=== PATIENT | female | born 1965 | race Caucasian/White ===

== ENCOUNTER → 2021-12-20 13:37 | Outpatient (BNVA) | payer OTHER, SELFPAY | PROVIDERS: Family Provider Family Medicine; PCP Family Medicine; Visit Provider Nurse Practitioner Family | DX: R60.0 Localized edema (principal); R51.9 Headache, unspecified; B00.1 Herpesviral vesicular dermatitis | CPT/HCPCS: 80053; 85025 ==

== ENCOUNTER → 2022-05-15 16:33 | Outpatient (BNVA) | payer OTHER, SELFPAY | PROVIDERS: Family Provider Family Medicine; PCP Family Medicine; Visit Provider Nurse Practitioner Family | DX: R30.9 Painful micturition, unspecified (principal) | CPT/HCPCS: 81003; 87086 ==

== ENCOUNTER → 2022-05-29 09:01 | Outpatient (BNVA) | payer OTHER, SELFPAY | PROVIDERS: Family Provider Family Medicine; PCP Family Medicine; Visit Provider Family Medicine | DX: I10 Essential (primary) hypertension (principal) | CPT/HCPCS: 80053; 80061; 85025 ==

== ENCOUNTER 2022-08-16 10:21 | Emergency (ER) | payer OTHER, SELFPAY ==
--- NOTE | 2022-08-16 10:31 | ECG_ITS ---
[facility] Test Date: 2022-08-16 Pat Name: Ac Hall Department: Room: Gender: Female Neon Sign Maker: : 1965 Requested By: Wiley Lawson Order Number: [id number] Nick MD: Barrett Alfred M.D. Measurements Intervals [place] Rate: 106 P: 53 MO: 134 QRS: 79 QRSD: 88 T: 48 QT: 362 QTc: 482 Interpretive Statements SINUS TACHYCARDIA POSSIBLE LEFT ATRIAL ENLARGEMENT [-0.1mV P-WAVE IN V1/V2] MINIMAL ST DEPRESSION [0.025+ mV ST DEPRESSION] No previous ECG available for comparison Electronically Signed On 08-16-2022 18:42:38 CDT by Barrett Alfred M.D. [id number] f
[2022-08-16 10:33] VITALS: BP 128/87; PULSE 97; RESP 18; TEMP 36.4; O2SAT 98
--- NOTE | 2022-08-16 10:47 | XR_ITS ---
WS: [id number] Exam: XR chest 1V portable [id number] Date/Time of Exam: 08/16/2022 10:47 AM Reason For Exam: chest pain No priors. The lungs are clear and fully inflated. Normal cardiomediastinal silhouette. Bony structures are inta ct. Monitoring leads superimpose the chest. XR/XR chest 1V portable [id number] IMPRESSION: 1. No acute cardiopulmonary finding.
[2022-08-16 11:10] VITALS: BP 126/92; PULSE 90; RESP 13; O2SAT 92
--- NOTE | 2022-08-16 11:22 | W.ED.CHESTPA ---
HPI - Chest Pain General: Chief Complaint: Chest Pain Stated Complaint: pressure in chest/weak legs and arms Time Seen by Provider: 08/16/22 10:47 Source: patient Mode of arrival: ambulatory History of Present Illness: 57-year-old female who presents to the emergency room with complaints of chest discomfort for the last 5 days. She had nausea and vomiting feels very short of breath. She has pressure on the left side of her chest interestingly with palpation radiates into the left side of her neck. She has not noticed anything exacerbates or relieves it. She is a smoker she has no known history of coronary artery disease does have a history of hypertension. MD complaint: chest discomfort Onset (ago): day(s) (5) Timing of current episode: episodic Prior episodes: No Onset: during rest and during exertion Pain location: left chest Pain radiation: neck Severity: mild Quality: aching and heaviness Relieving factors: nothing Exacerbating factors: nothing Associated symptoms: Deny abdominal pain, diaphoresis, dyspnea, fever(s), leg edema, nausea, palpitations, sense of impending doom, syncope or vomiting Treatment prior to arrival: none Review of Systems Const: Denies: fever(s), chills, fatigue, malaise or diaphoresis ENMT: Denies: throat pain, ear or mastoid pain, nasal discharge or nasal congestion Card: Denies: palpitations or syncope Resp: Denies: dyspnea GI: Denies: abdominal pain, nausea or vomiting : Denies: flank pain, difficulty voiding, dysuria, urinary frequency or urinary urgency Skin/Breast: Denies: rash or pruritus [facility] ED PFSH: Medical History (Updated 08/16/22 @ 14:43 by Wiley Jessica DO) COPD (chronic obstructive pulmonary disease) Essential hypertension Hyperlipemia Surgical History (Updated 08/16/22 @ 11:26 by Wiley Jessica DO) History of lung surgery Hx of hysterectomy Social History Smoking and tobacco status: current every day smoker cigarettes Packs smoked per day: 0.5 Alcohol intake: current Alcohol intake frequency: 0-2 Drinks per Day Physical Exam Const: COMMON NORMALS: no acute distress GENERAL APPEARANCE: cooperative and comfortable ORIENTATION/CONSCIOUSNESS: Yes awake, Yes oriented to person, Yes oriented to place and Yes oriented to time HENMT: COMMON NORMALS: normocephalic, atraumatic and hearing grossly normal bilaterally HEAD & SCALP: normocephalic and atraumatic Resp: COMMON NORMALS: normal respiratory effort, No retractions, No use of accessory muscles and clear to auscultation bilaterally AUSCULTATION: clear to auscultation bilaterally Cardio: COMMON NORMALS: regular rate, regular rhythm and No murmurs present (Cardio) RATE: regular rate RHYTHM: regular rhythm GI: COMMON NORMALS: Soft to palpation and No hepatosplenomegaly present AUSCULTATION: Yes normoactive bowel sounds PALPATION: Yes Soft to palpation, No Tenderness to palpation present (GI), No Guarding due to palpation present (GI) and Yes No hepatosplenomegaly present Extremity: COMMON NORMALS: normal to inspection, capillary refill normal, no clubbing, cyanosis or edema, no calf tenderness and no pedal edema Neuro: SENSORIUM/ORIENTATION: Yes oriented to person, Yes oriented to place and Yes oriented to time Skin: COMMON NORMALS: no rashes or lesions noted GENERAL SKIN EXAM: no rashes or lesions noted Course Vital Signs: Vital signs: Vital Signs Temperature 97.5 F L 08/16/22 10:33 Pulse Rate 90 08/16/22 11:10 Respiratory Rate 13 08/16/22 11:10 Blood Pressure 129/90 08/16/22 13:27 Pulse Oximetry 93 08/16/22 13:27 Oxygen Delivery Me thod 08/16/22 13:27 Oxygen Flow Rate 2 08/16/22 13:27 MDM - Chest Pain Medical Decision Making Labs imaging and EKG reviewed as found in the chart. No acute ST changes noted some mild hypokalemia but otherwise unremarkable. Cardiac enzymes trended negative. EKGs did not show any acute ST changes. Discharge patient home follow-up with primary care and cardiology as previously scheduled. Case management scheduled for outpatient Lexiscan sestamibi stress test. Begin baby aspirin daily. Medical Records I reviewed the patient's medical records. Lab Data I reviewed the patient's lab results. 08/16/22 11:30 08/16/22 11:30 Radiology Impressions Chest X-Ray 08/16/22 10:47 IMPRESSION: 1. No acute cardiopulmonary finding. Laboratory Results WBC 7.0 10^3/uL (4.0-10.0) 08/16/22 11: RBC 5.10 10^6/uL (4.1-5.3) 08/16/22 11: Hgb 15.6 g/dL (11.5-15.3) H 08/16/22 11:30 Hct 46.9 % (37.0-47.0) 08/16/22 11: MCV 92.0 fl (81-99) 08/16/22 11: MCH 30.6 pg (28.0-34.0) 08/16/22 11: MCHC 33.3 g/dL (30.0-36.0) 08/16/22 11: RDW 13.4 % (12.1-15.1) 08/16/22 11: Plt Count 224 10^3/cmm (130-400) 08/16/22 11: MPV 10.3 fL (7.4-10.4) 08/16/22 11:30 Neut % (Auto) 69.6 % 08/16/22 11:30 Lymph % (Auto) 20.5 % 08/16/22 11:30 [place] % (Auto) 8.0 % 08/16/22 11:30 Eos % (Auto) 1.1 % 08/16/22 11: Baso % (Auto) 0.7 % 08/16/22 11: Neut # (Auto) 4.89 10^3/uL (1.8-7.7) 08/16/22 11: Lymph # (Auto) 1.4 10^3/uL (0.8-4.8) 08/16/22 11:30 [place] # (Auto) 0.6 10^3/uL (0.2-0.9) 08/16/22 11:30 Eos # (Auto) 0.1 10^3/uL (0.0-0.8) 08/16/22 11:30 Baso # (Auto) 0.1 10^3/uL (0.0-0.1) 08/16/22 11:30 Nucleated RBC % (auto) 0 % 08/16/22 11:30 Nucleated RBCs # 0.0 /100WBC 08/16/22 11:30 Sodium 134 mmol/L (136-145) L 08/16/22 11:30 Potassium 3.1 mmol/L (3.5-5.1) L 08/16/22 11:30 Chloride 93 mmol/L (98-107) L 08/16/22 11:30 Carbon Dioxide 26 mmol/L (22-29) 08/16/22 11:30 Anion Gap 18.1 (5-19) 08/16/22 11:30 BUN 17 mg/dL (6-20) 08/16/22 11:30 Creatinine 0.9 mg/dL (0.5-0.9) 08/16/22 11:30 GFR Calculation 64.3 mL/min (90-130) L 08/16/22 11:30 Glucose 99 mg/dL (65-115) 08/16/22 11:30 Calculated Osmolality 280 mOsm/kg (285-295) L 08/16/22 11:30 Calcium 10.2 mg/dL (8.5-10.5) 08/16/22 11:30 Total Bilirubin 1.0 mg/dL (0.15-1.2) 08/16/22 11:30 AST 24 U/L (0-32) 08/16/22 11:30 ALT 18 U/L (0-33) 08/16/22 11:30 Alkaline Phosphatase 136 U/L (35-105) H 08/16/22 11:30 Troponin T Baseline 7 ng/L (0-10) 08/16/22 11:30 Troponin T 120 Minute 7.14 ng/L (0-10) 08/16/22 13:30 Delta Troponin T 0.14 ABS# (0-10) 08/16/22 13:30 Total Protein 7.7 g/dL (6.6-8.7) 08/16/22 11:30 Albumin 4.4 g/dL (3.5-5.2) 08/16/22 11:30 Globulin 3.3 g/dL (1.3-4.6) 08/16/22 11:30 Discharge Plan Discharge Patient Disposition: Home Clinical Impression: Atypical chest pain Condition: Stable Prescriptions: New aspirin 81 mg tablet,delayed release (DR/EC) 81 mg PO DAILY Qty: 30 0RF No Action losartan 50 mg tablet 50 mg PO DAILY Qty: 90 3RF atorvastatin [Lipitor] 40 mg tablet 40 mg PO DAILY Qty: 30 5RF hydralazine 50 mg tablet 50 mg PO TID Qty: 90 5RF potassium chloride 20 mEq tablet,ER particles/crystals 20 meq PO DAILY Qty: 90 3RF escitalopram oxalate 20 mg tablet 40 mg PO DAILY Qty: 180 3RF alprazolam [Xanax] 0.25 mg tablet 0.25 mg PO DAILY PRN (Reason: anxiety) Qty: 30 0RF hydrochlorothiazide 25 mg tablet 25 mg PO DAILY Discharge Orders: Discharge ED (Routine); Ordered 08/16/22 Ordered By: Wiley Jessica Referrals: Elie Ribera DO [Primary Care Provider] - Discharge Diet: Usual diet Discharge Activity: Increase activity as tolerated Patient Instructions: Opioid Safety, Pain Management Activity Restrictions/Additional Instructions: You were seen today for chest discomfort. Your cardiac enzymes and EKG were unremarkable your chest x-ray was normal discharge home and get you scheduled for an outpatient stress test. Do recommend to take baby aspirin daily. Coding Level of Care Code ED Head Banquet Waiter/Waitress for Raphael Bernal
[2022-08-16 11:42] LABS: Basophils # 0.1 10^3/uL (0.0-0.1); Basophils % 0.7 %; Eosinophils # 0.1 10^3/uL (0.0-0.8); Eosinophils % 1.1 %; Hematocrit 46.9 % (37.0-47.0); Hemoglobin 15.6 g/dL (11.5-15.3); Lymphocytes # 1.4 10^3/uL (0.8-4.8); Lymphocytes % 20.5 %; Mean Corpuscular HGB Conc 33.3 g/dL (30.0-36.0); Mean Corpuscular Hemoglobin 30.6 pg (28.0-34.0); Mean Platelet Volume 10.3 fL (7.4-10.4); Monocytes # 0.6 10^3/uL (0.2-0.9); Neutrophils # 4.89 10^3/uL (1.8-7.7); Neutrophils % 69.6 %; Nucleated Red Blood Cells % 0 %; Platelet Count 224 10^3/cmm (130-400); Red Cell Distribution Width 13.4 % (12.1-15.1)
[2022-08-16 12:02] LABS: Troponin(5th) Baseline 7 ng/L (0-10)
[2022-08-16 12:05] LABS: Alanine Aminotransferase 18 U/L (0-33); Albumin Level 4.4 g/dL (3.5-5.2); Alkaline Phosphatase 136 U/L (35-105); Anion Gap 18.1 (5-19); Aspartate Amino Transferase 24 U/L (0-32); Blood Urea Nitrogen 17 mg/dL (6-20); Calcium 10.2 mg/dL (8.5-10.5); Carbon Dioxide 26 mmol/L (22-29); Chloride 93 mmol/L (98-107); Globulin 3.3 g/dL (1.3-4.6); Glomerular Filtration Rate 64.3 mL/min (90-130); Glucose 99 mg/dL (65-115); Osmolality Calculated 280 mOsm/kg (285-295); Potassium 3.1 mmol/L (3.5-5.1); Sodium 134 mmol/L (136-145); Total Protein 7.7 g/dL (6.6-8.7)
--- NOTE | 2022-08-16 13:00 | ECG_ITS ---
[facility] Test Date: 2022-08-16 Pat Name: Ac Hall Department: Room: Gender: Female Supply Assistant: : 1965 Requested By: Wiley Lawson Order Number: [id number] Nick MD: Barrett Alfred M.D. Measurements Intervals [place] Rate: 76 P: 34 [place]: 136 QRS: 68 QRSD: 81 T: 46 QT: 399 QTc: 449 Interpretive Statements SINUS RHYTHM Compared to ECG 08/16/2022 10:31:51 Sinus tachycardia no longer present ST (T wave) deviation no longer present Electronically Signed On 08-16-2022 18:46:39 CDT by Barrett Alfred M.D. [id number]
[2022-08-16 13:27] VITALS: BP 129/90; O2SAT 93
[2022-08-16 13:55] LABS: Troponin 5 2HR 7.14 ng/L (0-10)
[2022-08-16 14:16] LABS: Troponin 5 2HR Delta 0.14 ABS# (0-10)
--- NOTE | 2022-08-21 13:58 | DCPLANNER ---
Addendum entered by Ruchi Almaguer 01/03/23 12:05: process manager received the following message from centralized scheduling regarding out patient test ordered: I am inactivating the account for CDL Sheron for Ac Hall 63 ordered by Jaskaran as the patient has been unreachable. Original Note: process manager had message to schedule an outpatient stress test for patient. process manager faxed signed order to centralized scheduling, who will call patient with appointment information.
--- NOTE | 2022-08-21 14:12 | DCPLANNER ---
automated teller manager had message to schedule an outpatient stress test for patient. automated teller manager faxed signed order to centralized scheduling, who will call patient with appointment information.
== END 2022-08-16 14:53 | disposition home or self-care (01) ==
PROVIDERS: Emergency Provider Family Medicine; PCP Family Medicine
DX: R07.89 Other chest pain (principal); J44.9 Chronic obstructive pulmonary disease, unspecified; I10 Essential (primary) hypertension; E78.5 Hyperlipidemia, unspecified; F17.210 Nicotine dependence, cigarettes, uncomplicated
CPT/HCPCS: 36415; 71045; 80053; 84484; 85025; 93005; 99285

== ENCOUNTER → 2022-08-30 08:47 | Outpatient (BNVA) | payer OTHER, SELFPAY | PROVIDERS: PCP Family Medicine; Visit Provider Internal Medicine Cardiovascular Disease | DX: E78.5 Hyperlipidemia, unspecified (principal); R94.31 Abnormal electrocardiogram [ECG] [EKG] | CPT/HCPCS: 80061; 80076 ==

== ENCOUNTER 2022-09-01 07:32 | Outpatient (CLI) | payer OTHER, SELFPAY ==
--- NOTE | 2022-09-01 07:45 | USCV_ITS ---
Rafael Ac Age: 57 Gender: F : 1965 Exam Date: 09/01/2022 07:45 Ordering Phys: Malachi Ku MD ([email or web address]) Technologist: Exam [place] [facility] [place]: htn BP: 145 / 96 HR: 59 Rhythm: Sinus Technical Quality: Adequate MEASUREMENTS (Male / Female) Normal Values 2D ECHO LV Diastolic Diameter PLAX 3.6 cm 4.2 - 5.9 / 3.9 - 5.3 cm LV Systolic Diameter PLAX 2.2 cm IVS Diastolic Thickness 1.0 cm 0.6 - 1.0 / 0.6 - 0.9 cm IVS Systolic Thickness 1.2 cm LVPW Diastolic Thickness 0.9 cm 0.6 - 1.0 / 0.6 - 0.9 cm LVPW Systolic Thickness 1.2 cm LVOT Diameter 2.1 cm LV Ejection Fraction 2D Teich 70.1 % LV Ejection Fraction MOD 2C 63.8 % LV Ejection Fraction 2C AL 63.7 % LA Diameter 3.3 cm IVC Diameter 1.5 cm M-MODE Aortic Annulus Diameter 2.9 cm LA Ao Ratio MM 1.1 MV E Point Septal Separation 0.8 cm DOPPLER AV Peak Velocity 131.0 cm/s LVOT Peak Velocity 99.0 cm/s AV Area Cont Eq vti 2.4 cm squared AV Area Cont Eq pk 2.6 cm squared MV Area PHT 5.0 cm squared Mitral E to A Ratio 1.0 MV E' Velocity 41.0 cm/s Mitral E to MV E' Ratio 8.2 Mitral E to LV E' Lateral Ratio 9.7 Mitral E to LV E' Septal Ratio 7.1 TR Peak Velocity 283.7 cm/s TR Peak Gradient 32.2 mmHg TV Peak E Velocity 84.0 cm/s Right Atrial Pressure 3.0 mmHg Pulmonary Artery Systolic Pressu 35.2 mmHg RV Acceleration Time 0.1 s FINDINGS Left Ventricle Normal left ventricular size and systolic function, EF 65 %. No regional wall motion abnormalities. Right Ventricle The right ventricle is normal in size and function. Right Atrium The right atrium is normal in size. Left Atrium The left atrium is normal in size. Mitral Valve No gross abnormalities noted Aortic Valve No gross abnormalities noted Tricuspid Valve Trace tricuspid valve regurgitation. Estimated pulmonary artery peak systolic pressure 35 mmHg Pulmonic Valve No gross abnormalities noted Pericardium Normal pericardium without effusion. Aorta Normal ascending aorta dimension. IVC Normal inferior vena cava. CONCLUSIONS Normal left ventricular size and systolic function, EF 65 %. No regional wall motion abnormalities. Trace tricuspid valve regurgitation. Estimated pulmonary artery peak systolic pressure 35 mmHg. Normal cardiac chamber sizes. No significant stenotic or regurgitant valvular lesions There is no pericardial effusion. There are no intracardiac masses. No similar previous studies are available for comparison Dr Malachi Ku MD FACC (Electronically Signed) Final Date: 04 September 2022 08:33 S
== END 2022-09-01 07:33 | disposition home or self-care (01) ==
PROVIDERS: PCP Family Medicine; Visit Provider Internal Medicine Cardiovascular Disease
DX: R06.09 Other forms of dyspnea (principal); R94.31 Abnormal electrocardiogram [ECG] [EKG]
CPT/HCPCS: 93306

== ENCOUNTER → 2023-01-25 10:39 | Outpatient (BNVA) | payer OTHER, SELFPAY | PROVIDERS: PCP Family Medicine; Visit Provider Nurse Practitioner Family | DX: R10.31 Right lower quadrant pain (principal); K59.00 Constipation, unspecified | CPT/HCPCS: 74018 ==

== ENCOUNTER → 2023-01-31 16:53 | Outpatient (BNVA) | payer OTHER, SELFPAY | PROVIDERS: PCP Family Medicine; Visit Provider Nurse Practitioner Family | DX: E87.6 Hypokalemia (principal); R25.2 Cramp and spasm; R93.89 Abnormal findings on diagnostic imaging of other specified body structures; K52.9 Noninfective gastroenteritis and colitis, unspecified | CPT/HCPCS: 80053; 83735 ==

== ENCOUNTER → 2024-01-28 14:13 | Outpatient (BNVA) | payer OTHER, SELFPAY | PROVIDERS: PCP Nurse Practitioner Family; Visit Provider Nurse Practitioner Family | DX: M17.11 Unilateral primary osteoarthritis, right knee (principal); M25.561 Pain in right knee | CPT/HCPCS: 73562 ==

== ENCOUNTER → 2024-11-24 09:37 | Outpatient (BNVA) | payer OTHER, SELFPAY | PROVIDERS: PCP Nurse Practitioner Family; Visit Provider Nurse Practitioner Family | DX: I10 Essential (primary) hypertension (principal) | CPT/HCPCS: 80053; 80061; 83735; 85025 ==

== ENCOUNTER 2024-12-01 11:00 | Outpatient (CLI) | payer OTHER, SELFPAY ==
--- NOTE | 2024-12-01 11:00 | MM_ITS ---
WS: [id number] BILATERAL 3D TOMOSYNTHESIS DIGITAL SCREENING MAMMOGRAM WITH CAD CLINICAL INFORMATION: Z12.39 - Encounter for other screening for malignant neop... HISTORY: Screening mammogram. No current complaints. COMPARISON: New baseline TECHNIQUE: Bilateral CC and MLO. FINDINGS: The breast are composed of extremely dense tissue, which can limit the detection of small underlying mass lesions. No suspicious focal mass, asymmetry, calcifications, or architectural distortion. No evidence of malignancy. Vascular calcification. A few benign calcifications. MM/MM [facility] tomosynthesis [id number] IMPRESSION: DENSITY: The breasts are extremely dense, which lowers the sensitivity of mammo graphy. BI-RADS: 2 - Benign FOLLOW UP: 1 Year Follow-up Recommend return to annual screening mammography.
== END 2024-12-01 11:01 | disposition home or self-care (01) ==
PROVIDERS: PCP Nurse Practitioner Family; Visit Provider Nurse Practitioner Family
DX: Z12.31 Encounter for screening mammogram for malignant neoplasm of breast (principal); Z12.39 Encounter for other screening for malignant neoplasm of breast; R92.343 Mammographic extreme density, bilateral breasts; R92.1 Mammographic calcification found on diagnostic imaging of breast
CPT/HCPCS: 77063; 77067